=== PATIENT | female | born 1995 | race Caucasian/White ===

== ENCOUNTER 2017-06-20 00:20 | Observation (INO) | payer BC, OTHER ==
[~2017-06-20] VITALS: Ht 165.1 cm; Wt 90.4 kg
[2017-06-20] MEDS ORDERED: PREN1TAB80 PO (00:57)
[2017-06-20] MEDS ORDERED: FLUCONAZOLE 150 MG TABLET PO ONE (01:15)
[2017-06-20 02:56] VITALS: BP 111/69
== END 2017-06-20 02:35 | disposition home or self-care (01) ==
LOC: 4S 00:20
PROVIDERS: ADMIT Obstetrics & Gynecology; ATTEND Obstetrics & Gynecology
DX: O26.893 Other specified pregnancy related conditions, third trimester (principal); N89.8 Other specified noninflammatory disorders of vagina; Z3A.36 36 weeks gestation of pregnancy
CPT/HCPCS: 59025; G0378